=== PATIENT | female | born 1960 | race Hispanic/Latino ===

== ENCOUNTER 2017-11-27 13:27 | Inpatient (IN) | payer BC, OTHER ==
[~2017-11-27] VITALS: Ht 167.6 cm; Wt 59.9 kg
[2017-11-27 14:02] LABS: BASOPHILS % (AUTO) 0.5 % (0.0-5.0); HEMATOCRIT 31.1 % (36-48); MEAN CORPUSCULAR HEMOGLOBIN 26.7 pg (27.0-33.0); MEAN CORPUSCULAR HGB CONC 33.6 g/dL (32.0-36.0); MEAN CORPUSCULAR VOLUME 79.6 fL (79-99); MONOCYTES % (AUTO) 5.1 % (3.0-13.0); NEUTROPHILS % (AUTO) 82.4 % (40.0-77.0); PLATELET COUNT (AUTO) 431 K/uL (130-400); RED CELL DISTRIBUTION WIDTH 13.8 % (11.0-15.5); WHITE BLOOD COUNT (AUTO) 8.4 K/uL (4.8-10.8)
[2017-11-27 14:08] LABS: APPEARANCE,URINE CLEAR (CLEAR); BILIRUBIN,URINE NEGATIVE (NEGATIVE); COLOR,URINE YELLOW (YELLOW); GLUCOSE, URINE (UA) NEGATIVE (NEGATIVE); KETONES,URINE 5 mg/dL (NEGATIVE); LEUKOCYTE ESTERASE ,URINE SMALL (NEGATIVE); NITRATE,URINE NEGATIVE (NEGATIVE); OCCULT BLOOD,URINE NEGATIVE (NEGATIVE); PROTEIN,URINE NEGATIVE (NEGATIVE); UROBILINOGEN,URINE 0.2 mg/dL (0.2-1.0)
[2017-11-27 14:11] LABS: CREATININE 0.7 mg/dL (0.5-1.5); POTASSIUM 3.7 mmol/L (3.5-5.1)
[2017-11-27 14:15] LABS: ALBUMIN 3.3 g/dL (3.5-5.0); BILIRUBIN,TOTAL 0.3 mg/dL (0.2-1.0); TOTAL PROTEIN, SERUM 7.7 g/dL (6.0-8.3)
[2017-11-27 14:31] LABS: BACTERIA,URINE Rare /HPF (None Seen); RBC,URINE 0-1 /HPF (0-1); SQUAMOUS EPITHELIAL CELL,UR Rare /HPF (0-2); WBC,URINE 0-1 /HPF (0-1)
[2017-11-27] MEDS ORDERED: ONDANSETRON HCL MDV 20ML 2 MG/ML VIAL ONE (15:29)
[2017-11-27] MEDS ORDERED: HYDROMORPHONE HCL 0.5 MG/0.5 ML ML ONE (15:30)
[2017-11-27] MEDS ORDERED: SODIUM CHLORIDE 0.9% 1000ML 1,000 ML IV ONE (16:19)
[2017-11-27 17:55] VITALS: BP 151/82
[2017-11-27] MEDS: SODIUM CHLORIDE 0.9% 1000ML 1,000 ML IV SCH (18:15)
[2017-11-27] MEDS ORDERED: ACETAMINOPHEN 325 MG TAB PO PRN ×2 (18:15)
[2017-11-27] MEDS ORDERED: ONDANSETRON HCL MDV 20ML 2 MG/ML VIAL IVP PRN (18:15)
[2017-11-27] MEDS: MORPHINE SULFATE 4 MG/1ML SYG IVP PRN (19:32)
[2017-11-27 20:00] VITALS: BP 148/84
[2017-11-27] MEDS ORDERED: KETOROLAC TROMETHAMINE 30MG/ML IV PRN (23:00)
[2017-11-27] MEDS ORDERED: GLUCAGON 1MG KIT 1 MG ML IM PRN (23:15)
[2017-11-27] MEDS ORDERED: DEXTROSE 50%-WATER 50 ML DISP.SYRIN IV PRN (23:15)
[2017-11-28] VITALS (11 sets, daily range): BP systolic 129–152; BP diastolic 62–89
[2017-11-28] MEDS: MORPHINE SULFATE 4 MG/1ML SYG IVP PRN ×2 (01:03→08:49)
[2017-11-28] MEDS: SODIUM CHLORIDE 0.9% 1000ML 1,000 ML IV SCH (04:34)
[2017-11-28 06:00] LABS: HEMATOCRIT 27.5 % (36-48); MEAN CORPUSCULAR HEMOGLOBIN 26.9 pg (27.0-33.0); MEAN CORPUSCULAR HGB CONC 33.5 g/dL (32.0-36.0); MEAN CORPUSCULAR VOLUME 80.3 fL (79-99); NUCLEATED RED BLOOD CELLS 0.1 % (0.0-0.19); PLATELET COUNT (AUTO) 307 K/uL (130-400); RED BLOOD CELL COUNT(AUTO) 3.43 MIL/uL (4.00-5.50); RED CELL DISTRIBUTION WIDTH 13.9 % (11.0-15.5); WHITE BLOOD COUNT (AUTO) 6.7 K/uL (4.8-10.8)
[2017-11-28 06:10] LABS: INR 1.07 (0.85-1.15); PROTHROMBIN TIME 11.2 SEC (9.6-11.6)
[2017-11-28 06:11] LABS: CREATININE 0.6 mg/dL (0.5-1.5); POTASSIUM 4.7 mmol/L (3.5-5.1)
[2017-11-28] MEDS: INSULIN HUMULIN R 100 UNIT/ML 3ML SQ SCH ×4 (06:33→20:59)
[2017-11-28] MEDS ORDERED: ONDANSETRON HCL 4 MG/2 ML VIAL IV PRN (09:45)
[2017-11-28] MEDS ORDERED: LIDOCAINE HCL-MPF 1% 2ML VIAL IVP PRN (09:45)
[2017-11-28] MEDS ORDERED: POTASSIUM CHLORIDE 20MEQ/100ML 100 ML IV PRN (09:45)
[2017-11-28] MEDS ORDERED: ACETAMINOPHEN 325 MG TAB PO PRN ×2 (09:45)
[2017-11-28] MEDS ORDERED: LACTULOSE 20 GM/30 ML UDCUP PO PRN (09:45)
[2017-11-28] MEDS ORDERED: POTASSIUM CHLORIDE 10% ELIXIR 20 MEQ/15 ML UDCUP PO PRN (09:45)
[2017-11-28] MEDS ORDERED: POTASSIUM CHLORIDE 20 MEQ ERTAB PO PRN (09:45)
[2017-11-28] MEDS ORDERED: NITROGLYCERIN 0.4 MG SL TAB SL PRN (09:45)
[2017-11-28] MEDS ORDERED: HYDRALAZINE HCL 20 MG/ML VIAL IV PRN (09:45)
[2017-11-28] MEDS ORDERED: GUAIFENESIN-DM 200/20 MG 10 ML PO PRN (09:45)
[2017-11-28] MEDS ORDERED: MAG HYDROX/AL HYDROX/SIMETH ES 30 ML SUSP UDCUP PO PRN (09:45)
[2017-11-28] MEDS ORDERED: ACETAMINOPHEN-CODEINE 300/30MG TAB PO PRN ×2 (09:45)
[2017-11-28 10:46] LABS: RETICULOCYTE % (AUTO) 17.35 % (0.42-2.23)
[2017-11-28 11:05] LABS: % IRON SATURATION 12.2 % (22-44); FERRITIN 541 ng/mL (15-150); IRON, SERUM 15 mcg/dL (50-170); TOTAL IRON BINDING CAPACITY 122 mcg/dL (250-450)
[2017-11-29] VITALS: BP 137/80
[2017-11-29] MEDS: MORPHINE SULFATE 4 MG/1ML SYG IVP PRN (02:01)
[2017-11-29 04:00] VITALS: BP 140/78
[2017-11-29 04:34] LABS: HEMATOCRIT 26.6 % (36-48); MEAN CORPUSCULAR HEMOGLOBIN 26.6 pg (27.0-33.0); MEAN CORPUSCULAR HGB CONC 33.4 g/dL (32.0-36.0); MEAN CORPUSCULAR VOLUME 79.8 fL (79-99); PLATELET COUNT (AUTO) 289 K/uL (130-400); RED BLOOD CELL COUNT(AUTO) 3.33 MIL/uL (4.00-5.50); RED CELL DISTRIBUTION WIDTH 13.7 % (11.0-15.5); WHITE BLOOD COUNT (AUTO) 6.4 K/uL (4.8-10.8)
[2017-11-29 04:47] LABS: CREATININE 0.6 mg/dL (0.5-1.5); POTASSIUM 3.9 mmol/L (3.5-5.1)
[2017-11-29] MEDS: INSULIN HUMULIN R 100 UNIT/ML 3ML SQ SCH (06:02)
[2017-11-29 08:00] VITALS: BP 124/78
[2017-11-29 12:00] VITALS: BP 141/77
== END 2017-11-29 15:00 | disposition home or self-care (01) | DRG 357 ==
LOC: EDH 13:27 → OBSVTOIN 16:06 → EDHIP 16:06 → 3CH 17:41
PROVIDERS: ADMIT Internal Medicine; ATTEND Internal Medicine
PROC: 0W9H3ZX Drainage of Retroperitoneum, Percutaneous Approach, Diagnostic (ICD-10-PCS; principal; 2017-11-28)
DX: R19.00 Intra-abdominal and pelvic swelling, mass and lump, unspecified site (principal); E44.1 Mild protein-calorie malnutrition; D64.9 Anemia, unspecified; E11.9 Type 2 diabetes mellitus without complications; E78.5 Hyperlipidemia, unspecified; J30.2 Other seasonal allergic rhinitis; K59.00 Constipation, unspecified; Z68.21 Body mass index [BMI] 21.0-21.9, adult; Z90.710 Acquired absence of both cervix and uterus; Z80.7 Family history of other malignant neoplasms of lymphoid, hematopoietic and related tissues
CPT/HCPCS: 36415; 49180; 71250; 74176; 77012; 80048; 80053; 81001; 82150; 82378; 82607; 82728; 82746; 82948; 83690; 85025; 85027; 85610; 88304; J1170; J1885; J2270; J7030

== ENCOUNTER 2018-01-13 09:54 | Inpatient (IN) | payer BC ==
[~2018-01-13] VITALS: Ht 154.9 cm; Wt 59.9 kg
[2018-01-13] MEDS ORDERED: SODIUM CHLORIDE 0.9% 1000ML 1,000 ML IV ONE (10:29)
[2018-01-13] MEDS ORDERED: PROMETHAZINE HCL 25 MG/ML 1ML AMPULE IM ONE (10:29)
[2018-01-13 11:17] LABS: HEMATOCRIT 23.7 % (36-48); LYMPHOCYTES % (AUTO) 4.1 % (21.0-51.0); MEAN CORPUSCULAR HEMOGLOBIN 25.1 pg (27.0-33.0); MEAN CORPUSCULAR HGB CONC 33.6 g/dL (32.0-36.0); MEAN CORPUSCULAR VOLUME 74.9 fL (79-99); MONOCYTES % (AUTO) 9.7 % (3.0-13.0); NEUTROPHILS % (AUTO) 86.2 % (40.0-77.0); PLATELET COUNT (AUTO) 317 K/uL (130-400); RED BLOOD CELL COUNT(AUTO) 3.17 MIL/uL (4.00-5.50); RED CELL DISTRIBUTION WIDTH 16.5 % (11.0-15.5); WHITE BLOOD COUNT (AUTO) 11.3 K/uL (4.8-10.8)
[2018-01-13 11:23] LABS: CREATININE 0.7 mg/dL (0.5-1.5); POTASSIUM 3.7 mmol/L (3.5-5.1)
[2018-01-13 11:27] LABS: ALBUMIN 2.8 g/dL (3.5-5.0); BILIRUBIN,TOTAL 0.4 mg/dL (0.2-1.0); TOTAL PROTEIN, SERUM 6.4 g/dL (6.0-8.3)
[2018-01-13 11:33] LABS: APPEARANCE,URINE Clear (CLEAR); BILIRUBIN,URINE Negative (NEGATIVE); COLOR,URINE Dark Yellow (YELLOW); GLUCOSE, URINE (UA) Negative (NEGATIVE); KETONES,URINE Negative (NEGATIVE); LEUKOCYTE ESTERASE ,URINE Negative (NEGATIVE); NITRATE,URINE Negative (NEGATIVE); OCCULT BLOOD,URINE Negative (NEGATIVE); PROTEIN,URINE Trace (NEGATIVE)
[2018-01-13 11:44] LABS: BACTERIA,URINE Rare /HPF (None Seen); RBC,URINE 0-1 /HPF (0-1); SQUAMOUS EPITHELIAL CELL,UR Rare /HPF (0-2); WBC,URINE 0-1 /HPF (0-1)
[2018-01-13] MEDS ORDERED: ONDANSETRON HCL 4 MG/2 ML VIAL ONE (13:40)
[2018-01-13] MEDS ORDERED: ONDANSETRON HCL 4 MG/2 ML VIAL IVP PRN (15:15)
[2018-01-13 18:00] VITALS: BP 140/82
[2018-01-13 20:06] VITALS: BP 141/79
[2018-01-13] MEDS: METOCLOPRAMIDE 10 MG/2 ML VIAL IVP PRN (20:07)
[2018-01-13] MEDS: SODIUM CHLORIDE 0.9% 1000ML 1,000 ML IV SCH (20:08)
[2018-01-13] MEDS ORDERED: PROMETHAZINE HCL 25 MG/ML 1ML AMPULE IM PRN (21:30)
[2018-01-13] MEDS ORDERED: DOCU100C19 PO (21:54)
[2018-01-13] MEDS ORDERED: ROSU5TAB11 PO (21:54)
[2018-01-13] MEDS ORDERED: OLAN2.5T29 PO (21:54)
[2018-01-13] MEDS ORDERED: METO10TA3 PO (21:54)
[2018-01-13] MEDS ORDERED: [UNRECOGNIZED DRUG - CODE] PO (21:54)
[2018-01-13] MEDS ORDERED: SENN-175 PO (21:54)
[2018-01-13] MEDS ORDERED: OMEP40CA37 PO (21:54)
[2018-01-13] MEDS ORDERED: ONDA4TAB4 PO (21:54)
[2018-01-14] VITALS (7 sets, daily range): BP systolic 128–142; BP diastolic 70–77
[2018-01-14] MEDS ORDERED: SENNOSIDES 8.6 MG TABLET PO PRN (00:15)
[2018-01-14] MEDS: SODIUM CHLORIDE 0.9% 1000ML 1,000 ML IV SCH ×3 (04:29→20:35)
[2018-01-14] MEDS: ONDANSETRON HCL 4 MG/2 ML VIAL IVP SCH ×4 (04:31→22:29)
[2018-01-14] MEDS: DOCUSATE SODIUM 100 MG CAP PO SCH ×2 (08:46→20:36)
[2018-01-14] MEDS: PANTOPRAZOLE SODIUM 40 MG TABLET.DR PO SCH (08:46)
[2018-01-14] MEDS ORDERED: OLANZAPINE 5 MG TAB PO PRN (09:00)
[2018-01-14] MEDS ORDERED: COMPOUND IV MISC 1 EACH IVSOLN MISC PRN (12:15)
[2018-01-14] MEDS: DEXAMETHASONE 10MG/ML 1ML VIAL 10 MG in SODIUM CHLORIDE 0.9% 50 ML IV SCH (14:16)
[2018-01-14] MEDS: MAG HYDROX/AL HYDROX/SIMETH ES 30 ML SUSP UDCUP PO SCH ×2 (19:30→20:36)
[2018-01-14] MEDS ORDERED: MAG HYDROX/AL HYDROX/SIMETH ES 30 ML SUSP UDCUP PO PRN (19:45)
[2018-01-14] MEDS: ATORVASTATIN CALCIUM 10 MG TABLET PO SCH (20:36)
[2018-01-15] MEDS: METOCLOPRAMIDE 10 MG/2 ML VIAL IVP PRN ×2 (02:02→23:57)
[2018-01-15 03:52] VITALS: BP 123/68
[2018-01-15] MEDS: ONDANSETRON HCL 4 MG/2 ML VIAL IVP SCH ×4 (03:58→20:05)
[2018-01-15] MEDS: SODIUM CHLORIDE 0.9% 1000ML 1,000 ML IV SCH ×4 (03:59→23:39)
[2018-01-15 07:19] VITALS: BP 124/67
[2018-01-15] MEDS: DOCUSATE SODIUM 100 MG CAP PO SCH ×2 (07:45→20:14)
[2018-01-15] MEDS: DEXAMETHASONE 10MG/ML 1ML VIAL 10 MG in SODIUM CHLORIDE 0.9% 50 ML IV SCH (07:52)
[2018-01-15] MEDS: PANTOPRAZOLE SODIUM 40 MG TABLET.DR PO SCH (07:52)
[2018-01-15] MEDS: MORPHINE SULFATE 15 MG TABLET.SA PO PRN (07:53)
[2018-01-15 08:28] LABS: BASOPHILS % (AUTO) 0.1 % (0.0-5.0); LYMPHOCYTES % (AUTO) 4.8 % (21.0-51.0); MEAN CORPUSCULAR HEMOGLOBIN 25.2 pg (27.0-33.0); MEAN CORPUSCULAR HGB CONC 33.4 g/dL (32.0-36.0); MEAN CORPUSCULAR VOLUME 75.6 fL (79-99); NEUTROPHILS % (AUTO) 93.1 % (40.0-77.0); PLATELET COUNT (AUTO) 268 K/uL (130-400); RED BLOOD CELL COUNT(AUTO) 2.59 MIL/uL (4.00-5.50); RED CELL DISTRIBUTION WIDTH 16.1 % (11.0-15.5); WHITE BLOOD COUNT (AUTO) 9.7 K/uL (4.8-10.8)
[2018-01-15 08:42] LABS: ALBUMIN 2.1 g/dL (3.5-5.0); BILIRUBIN,TOTAL 0.4 mg/dL (0.2-1.0); CREATININE 0.6 mg/dL (0.5-1.5); POTASSIUM 3.9 mmol/L (3.5-5.1); TOTAL PROTEIN, SERUM 5.2 g/dL (6.0-8.3)
[2018-01-15 09:05] LABS: HEMATOCRIT 19.6 % (36-48)
[2018-01-15] MEDS ORDERED: ACETAMINOPHEN 325 MG TAB PO SCH (09:15)
[2018-01-15] MEDS: DiphenhydrAMINE HCL 50 MG/ML VIAL IV SCH (11:09)
[2018-01-15 11:29] VITALS: BP 138/70
[2018-01-15 16:36] VITALS: BP 137/75
[2018-01-15] MEDS ORDERED: IOPAMIDOL-370 75 ML VIAL IV ONE (19:01)
[2018-01-15 20:04] VITALS: BP 155/82
[2018-01-15] MEDS: ATORVASTATIN CALCIUM 10 MG TABLET PO SCH (20:05)
[2018-01-16 00:04] VITALS: BP 134/69
[2018-01-16 04:04] VITALS: BP 142/76
[2018-01-16] MEDS: ONDANSETRON HCL 4 MG/2 ML VIAL IVP SCH ×3 (05:00→15:48)
[2018-01-16] MEDS: SODIUM CHLORIDE 0.9% 1000ML 1,000 ML IV SCH (05:00)
[2018-01-16] MEDS: MORPHINE SULFATE 15 MG TABLET.SA PO PRN (05:07)
[2018-01-16 05:31] LABS: HEMATOCRIT 26.7 % (36-48); MEAN CORPUSCULAR HEMOGLOBIN 26.5 pg (27.0-33.0); MEAN CORPUSCULAR HGB CONC 34.3 g/dL (32.0-36.0); MEAN CORPUSCULAR VOLUME 77.3 fL (79-99); PLATELET COUNT (AUTO) 389 K/uL (130-400); RED BLOOD CELL COUNT(AUTO) 3.45 MIL/uL (4.00-5.50); RED CELL DISTRIBUTION WIDTH 17.2 % (11.0-15.5); WHITE BLOOD COUNT (AUTO) 11.2 K/uL (4.8-10.8)
[2018-01-16 07:52] VITALS: BP 135/76
[2018-01-16] MEDS: DOCUSATE SODIUM 100 MG CAP PO SCH (09:05)
[2018-01-16] MEDS: DEXAMETHASONE 10MG/ML 1ML VIAL 10 MG in SODIUM CHLORIDE 0.9% 50 ML IV SCH (09:05)
[2018-01-16] MEDS: PANTOPRAZOLE SODIUM 40 MG TABLET.DR PO SCH (09:05)
[2018-01-16] MEDS: DiphenhydrAMINE HCL 50 MG/ML VIAL IV SCH (09:15)
[2018-01-16 11:40] VITALS: BP 142/75
[2018-01-16] MEDS ORDERED: ACETAMINOPHEN 325 MG TAB PO PRN (15:00)
[2018-01-16 16:50] VITALS: BP 139/72
== END 2018-01-16 17:48 | disposition home or self-care (01) | DRG 641 ==
LOC: EDH 09:54 → EDHIP 14:32 → OBSVTOIN 14:32 → 4BH 18:01
PROVIDERS: ADMIT Internal Medicine; ATTEND Internal Medicine
PROC: 30233N1 Transfusion of Nonautologous Red Blood Cells into Peripheral Vein, Percutaneous Approach (ICD-10-PCS; principal; 2018-01-13)
DX: E86.0 Dehydration (principal); C49.9 Malignant neoplasm of connective and soft tissue, unspecified; I95.9 Hypotension, unspecified; N13.30 Unspecified hydronephrosis; R13.10 Dysphagia, unspecified; R11.2 Nausea with vomiting, unspecified; D64.9 Anemia, unspecified; E11.9 Type 2 diabetes mellitus without complications; T45.1X5A Adverse effect of antineoplastic and immunosuppressive drugs, initial encounter; D72.829 Elevated white blood cell count, unspecified; E78.5 Hyperlipidemia, unspecified; F32.9 Major depressive disorder, single episode, unspecified; Z53.20 Procedure and treatment not carried out because of patient's decision for unspecified reasons; Z90.710 Acquired absence of both cervix and uterus; Z80.7 Family history of other malignant neoplasms of lymphoid, hematopoietic and related tissues
CPT/HCPCS: 36415; 36430; 74178; 80053; 81001; 83735; 85025; 85027; 86850; 86900; 86901; 86922; J1100; J1200; J2405; J2550; J2765; J7030; P9016; Q9967

== ENCOUNTER 2018-01-30 09:51 | Inpatient (IN) | payer BC ==
[2018-01-30] VITALS (18 sets, daily range): BP systolic 67–112; BP diastolic 35–68
[~2018-01-30] VITALS: Ht 167.6 cm; Wt 55.3 kg
[~2018-01-30 09:51] MED LIST: DOCU100C19 PO; METO10TA3 PO; OLAN2.5T29 PO; OMEP40CA37 PO; ONDA4TAB4 PO; ROSU5TAB11 PO; SENN-175 PO; [UNRECOGNIZED DRUG - CODE] PO
[2018-01-30 10:24] LABS: BASOPHILS % (AUTO) 0.3 % (0.0-5.0); HEMATOCRIT 31.2 % (36-48); LYMPHOCYTES % (AUTO) 41.9 % (21.0-51.0); MEAN CORPUSCULAR HEMOGLOBIN 26.2 pg (27.0-33.0); MEAN CORPUSCULAR HGB CONC 30.4 g/dL (32.0-36.0); MEAN CORPUSCULAR VOLUME 86.1 fL (79-99); MONOCYTES % (AUTO) 8.3 % (3.0-13.0); NEUTROPHILS % (AUTO) 49.5 % (40.0-77.0); NUCLEATED RED BLOOD CELLS 0.1 % (0.0-0.19); PLATELET COUNT (AUTO) 275 K/uL (130-400); RED BLOOD CELL COUNT(AUTO) 3.63 MIL/uL (4.00-5.50); RED CELL DISTRIBUTION WIDTH 21.6 % (11.0-15.5); WHITE BLOOD COUNT (AUTO) 5.1 K/uL (4.8-10.8)
[2018-01-30] MEDS ORDERED: MIDAZOLAM HCL 5 MG/ML 2ML VIAL IV ONE (10:25)
[2018-01-30] MEDS ORDERED: PROPOFOL 1000 MG/100 ML 100 ML IV ONE (10:27)
[2018-01-30 10:29] LABS: ABG BASE EXCESS -22.3 mmol/L (-2.0-3.0); ABG HCO3 9.4 mmol/L (21.0-28.0); ABG OXYGEN SATURATION 99.5 % (95.0-99.0); ABG PCO2 43 mmHg (32-45)
[2018-01-30 10:35] LABS: INR 1.21 (0.85-1.15); PARTIAL THROMBOPLASTIN TIME 36.2 SEC (26.3-35.5); PROTHROMBIN TIME 12.7 SEC (9.6-11.6)
[2018-01-30 10:39] LABS: APPEARANCE,URINE Cloudy (CLEAR); BILIRUBIN,URINE Negative (NEGATIVE); COLOR,URINE Dark Yellow (YELLOW); GLUCOSE, URINE (UA) Negative (NEGATIVE); KETONES,URINE Trace mg/dL (NEGATIVE); LEUKOCYTE ESTERASE ,URINE Negative (NEGATIVE); NITRATE,URINE Negative (NEGATIVE); OCCULT BLOOD,URINE Negative (NEGATIVE); PH,URINE 6.5 (5.0-8.0); PROTEIN,URINE POS 1+ (NEGATIVE)
[2018-01-30 10:55] LABS: BACTERIA,URINE Rare /HPF (None Seen); MUCUS,URINE Many LPF (None Seen); RBC,URINE 0-1 /HPF (0-1); SQUAMOUS EPITHELIAL CELL,UR Rare /HPF (0-2)
[2018-01-30 11:07] LABS: ALBUMIN 2.6 g/dL (3.5-5.0); BILIRUBIN,TOTAL 0.2 mg/dL (0.2-1.0); CREATINE KINASE MB 2.7 ng/mL (0.5-3.6); CREATININE 1.2 mg/dL (0.5-1.5); POTASSIUM 4.8 mmol/L (3.5-5.1); TOTAL PROTEIN, SERUM 5.8 g/dL (6.0-8.3)
[2018-01-30 11:10] LABS: CREATINE KINASE MB 2.9 ng/mL (0.5-3.6)
[2018-01-30] MEDS ORDERED: SODIUM BICARB 50MEQ 50ML VIAL ONE (11:13)
[2018-01-30] MEDS ORDERED: SODIUM CHLORIDE 0.9% 100 ML IV ONE (11:29)
[2018-01-30] MEDS ORDERED: INSULIN HUMULIN R 100 UNIT/ML 3ML ONE (11:30)
[2018-01-30] MEDS ORDERED: ZOSYN 3.375GM+NS 50ML 50 ML IV ONE (11:32)
[2018-01-30 11:33] LABS: TROPONIN I 0.74 ng/mL (0.00-0.06)
[2018-01-30 11:48] LABS: D-DIMER > 10000 ng/mL (0-500)
[2018-01-30] MEDS ORDERED: SODIUM BICARB 8.4% 50ML SYRINGE IVP ONE (12:00)
[2018-01-30] MEDS ORDERED: ETOMIDATE 2 MG/ML 10 ML VIAL IVP ONE (12:00)
[2018-01-30] MEDS ORDERED: DEXA4TAB PO (12:28)
[2018-01-30] MEDS ORDERED: MORP15TA70 PO (12:28)
[2018-01-30] MEDS ORDERED: OLAN5TAB27 PO (12:28)
[2018-01-30] MEDS: SODIUM CHLORIDE 0.9% 1000ML 1,000 ML IV SCH ×2 (13:30→19:54)
[2018-01-30] MEDS ORDERED: MIDAZOLAM 100MG-0.9% NS 100ML 100 ML IV PRN (13:30)
[2018-01-30] MEDS ORDERED: FENTANYL 2500MCG+NS 250ML 250 ML IV PRN (13:30)
[2018-01-30] MEDS: ZOSYN 3.375GM+NS 50ML 50 ML IV SCH (13:30)
[2018-01-30] MEDS ORDERED: DEXTROSE 50%-WATER 50 ML DISP.SYRIN IV ONE (14:09)
[2018-01-30] MEDS ORDERED: GLUCAGON 1MG KIT 1 MG ML IM PRN (14:15)
[2018-01-30] MEDS ORDERED: DEXTROSE 50%-WATER 50 ML DISP.SYRIN IV PRN (14:15)
[2018-01-30] MEDS ORDERED: LORAZEPAM 2 MG/ML 1 ML VIAL ONE (22:28)
[2018-01-30] MEDS ORDERED: MORPHINE SULFATE 4 MG/1ML SYG IV PRN (22:30)
[2018-01-30] MEDS ORDERED: LORAZEPAM 2 MG/ML 1 ML VIAL IVP PRN (22:30)
[2018-01-30] MEDS ORDERED: MORPHINE SULFATE 2 MG/ML 1ML SYG IVP PRN (22:30)
[2018-01-30] MEDS ORDERED: ONDANSETRON HCL MDV 20ML 2 MG/ML VIAL IVP PRN (22:30)
[2018-01-30] MEDS ORDERED: ONDANSETRON HCL 4 MG/2 ML VIAL ONE (22:37)
[2018-01-30] MEDS ORDERED: MORPHINE SULFATE 2 MG/ML 1ML SYG ONE (22:45)
[2018-01-31] MEDS ORDERED: LORAZEPAM 2 MG/ML 1 ML VIAL ONE (00:12)
[2018-01-31] MEDS: ZOSYN 3.375GM+NS 50ML 50 ML IV SCH (01:37)
== END 2018-01-31 01:55 | disposition expired | DRG 871 ==
LOC: EDH 09:51 → EDHIP 11:20 → 2CH 12:12
PROVIDERS: ADMIT Internal Medicine; ATTEND Internal Medicine
PROC: 0BH17EZ Insertion of Endotracheal Airway into Trachea, Via Natural or Artificial Opening (ICD-10-PCS; principal; 2018-01-30)
PROC: 5A1935Z Respiratory Ventilation, Less than 24 Consecutive Hours (ICD-10-PCS; 2018-01-30)
DX: A41.9 Sepsis, unspecified organism (principal); J96.01 Acute respiratory failure with hypoxia; C49.9 Malignant neoplasm of connective and soft tissue, unspecified; I47.1 Supraventricular tachycardia; D64.9 Anemia, unspecified; Z66 Do not resuscitate; Z51.11 Encounter for antineoplastic chemotherapy; Z90.710 Acquired absence of both cervix and uterus
CPT/HCPCS: 31500; 36415; 36600; 71045; 80053; 81001; 82270; 82550; 82553; 82803; 82948; 83605; 83874; 84484; 85025; 85378; 85610; 85730; 93005; 93970; 94002; 99291; 99292; J1815; J2060; J2250; J2405; J2543; J2704; J3010; J3490; J7030; J7070